=== PATIENT | female | born 1970 | race Caucasian/White ===

== ENCOUNTER 2017-09-06 19:41 | Emergency (ER) | payer OTHER ==
[2017-09-06] MEDS ORDERED: ASPIRIN 81 MG CHEW TAB PO ONE (19:43)
--- NOTE | 2017-09-06 19:43 | ED Physician Documentation ---
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 Pt had eaten a chicken dinner and was just sitting when pain occurred. Pt describes pain as 9/10 severity that radiated from her neck to her chest and L arm. No n/v, no diaphoresis, no sob. 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 She was seen in [facility]. Pt is a cigarette smoker, trying to quit, now smoking 5 cigarettes/day. 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 Pt presents with elevated ak=238/89. Pt takes no medications.) - ROS CONST: no problems EYES/ENT: none CVS/RESP: chest pain GI/: none MS/SKIN/LYMPH: none - PAST HX Past History: other (DVT, herpes zoster) Surgeries/Procedures: , cholecystectomy, hysterectomy, other ( appendectomy) Allergies/Adverse Reactions: Allergies Allergy/AdvReac Type Severity Reaction Status Date / Time latex Allergy Severe Blister Verified 09/06/17 20:32 cephalexin monohydrate Allergy Unknown Verified 09/06/17 20:32 [From Keflex] Penicillins Allergy Unknown Verified 09/06/17 20:32 STERIODS Allergy Unknown Uncoded 09/06/17 20:32 Home Medications: Ambulatory Orders Medication Instructions Recorded NK [NK] 09/06/17 - SOCIAL HX Smoking History: cigarettes - FAMILY HX Family History: No - REVIEWED ASSESSMENTS Nursing Assessment Reviewed: Yes Vitals Reviewed: Yes Progress - Progress Progress: Nitro 0.4 mg SL BP 199/89 --> 149/79 SBP --> 173/82 one inch nitro paste BP 155/83 pain 9-->5 Zofran 4 mg IV Morphine [address] chest: Pulmonary vascular congestion and mild pulmonary edema. Insufficient contrast enhancement of the pulmonary arteries for evaluation of pulmonary emboli. Transfer to [facility]. Dr. Jean. - EKG/XRAY/CT EKG: NSR (HR=83; normal axis; RBBB) XRAY: chest (No focal consolidation or pleural effusion.) General Adult Physical Exam - PHYSICAL EXAM GENERAL APPEARANCE: moderate distress EENT: pharynx normal NECK: normal inspection, supple RESPIRATORY: no resp distress, chest non-tender, breath sounds normal CVS: reg rate & rhythm, heart sounds normal ABDOMEN: soft, no organomegaly, normal bowel sounds BACK: normal inspection, no CVA tenderness SKIN: warm/dry, normal color EXTREMITIES: non-tender, normal range of motion, no evidence of injury NEURO: oriented X3, motor nml, sensation nml Discharge Clincal Impression: Chest pain, elevated D-dimer Referrals: Primary Doctor,No [Primary Care Provider] - Condition: Stable Disposition: XFER SHT-TRM HOSP Decision to Admit: NO Decision Time: 22:54
[2017-09-06] MEDS ORDERED: METOPROLOL TARTRATE 5 MG/5 ML VIAL IVP ONE (19:48)
[2017-09-06] MEDS ORDERED: NITROGLYCERIN 0.4 MG TAB.SUBL SL ONE (19:49)
[2017-09-06] MEDS ORDERED: NITROGLYCERIN 2% 1GM OINT PACKET...G. TD ONE (20:09)
[2017-09-06 20:19] LABS: BASOPHILS % 0.8 (0.0-1.5); EOSINOPHILS % 3.4 % (0.0-6.8); MEAN CORPUSCULAR HEMOGLOBIN 30.9 pg (28.0-34.0); MEAN CORPUSCULAR VOLUME 92.1 fl (80.0-100.0); MONOCYTES % 5.9 % (0.0-11.0); NEUTROPHILS # 4.3 # k/uL (1.4-7.7)
[2017-09-06 20:40] LABS: eGFR (African) > 60; eGFR (Non-African) > 60
--- NOTE | 2017-09-06 22:30 | Diagnostic Imaging Report ---
NINO PHAM [facility] [address] [facility] [address] [address] Report Submission Date: Sep 06, 2017 8:39:11 PM CDT Patient Study Name: JAD ALMANZA Date: Sep 06, 2017 8:23:43 PM CDT Modality Type: DX Gender: F Description: CHEST : 68 Institution: [facility] Physician: NINO PHAM Single frontal view of the chest History: Chest pain No comparison studies Cardiac size is upper limits of normal Monitoring leads are present over the chest No focal consolidation, pleural effusion or pneumothorax. No acute osseous pathology. Impression: No focal consolidation or pleural effusion. Electronically signed on Sep 06, 2017 8:39:11 PM CDT by: Lana RAMOS
[2017-09-06] MEDS ORDERED: ONDANSETRON HCL/PF 4 MG/ 2ML VIAL IVP ONE (22:48)
[2017-09-06] MEDS ORDERED: MORPHINE SULFATE 2 MG/ML PREFILLED SYR IVP ONE (22:49)
[2017-09-06 23:06] VITALS: BP 168/84
[2017-09-07 07:02] LABS: APPEARANCE,URINE CLEAR (CLEAR); COLOR,URINE AMBER (YELLOW)
[2017-09-07 07:03] LABS: OCCULT BLOOD,URINE TR (NEGATIVE); UROBILINOGEN URINE 0.2 Eu (0.2-1.0)
--- NOTE | 2017-09-07 10:29 | Diagnostic Imaging Report ---
[facility] [address] [facility].[address] [address] Report Submission Date: Sep 06, 2017 10:29:14 PM CDT Patient Study Name: JAD ALMANZA Date: Sep 06, 2017 9:41:41 PM CDT Modality Type: CT\SR Gender: F Description: CT PE CHEST : 68 Institution: [facility] Physician: NINO PHAM CT chest with contrast Date of study: September 06, 2017. CLINICAL HISTORY: CHEST PAIN; ELEVATED DDIMER; HX OF PE (Hx) / ITS.REASON chest pain; elevated D-dimer; hx DVT; PE PROTOCAL TECHNIQUE: 2.5 mm contiguous axial images of the chest with contrast. Sagittal and coronal reconstructions. FINDINGS: The left atrium is dilated and there is mild to moderate pulmonary vascular congestion. Hazy lung parenchymal opacity is consistent with mild pulmonary edema. There is no evidence of pulmonary infiltrate, pleural effusion or pneumothorax. There is limited contrast enhancement the pulmonary arteries and therefore limited evaluation for pulmonary emboli. The aorta and pulmonary arteries are normal in caliber. The mediastinal contents are within normal limits. The visualized portions of the liver, pancreas and spleen are normal in appearance. Surgical clips are present consistent with prior cholecystectomy. IMPRESSION: Pulmonary vascular congestion and mild pulmonary edema. Insufficient contrast enhancement of the pulmonary arteries for evaluation of pulmonary emboli. Electronically signed on Sep 06, 2017 10:29:14 PM CDT by: Derrek RAMOS
--- NOTE | 2017-09-07 15:20 | Diagnostic Imaging Report ---
NINO PHAM [facility] [address] [facility].[address] [address] Report Submission Date: Sep 06, 2017 10:29:14 PM CDT Patient Study Name: JAD ALMANZA Date: Sep 06, 2017 9:41:41 PM CDT Modality Type: CT\SR Gender: F Description: CT PE CHEST : 68 Institution: [facility] Physician: NINO PHAM CT chest with contrast Date of study: September 06, 2017. CLINICAL HISTORY: CHEST PAIN; ELEVATED DDIMER; HX OF PE (Hx) / ITS.REASON chest pain; elevated D-dimer; hx DVT; PE PROTOCAL TECHNIQUE: 2.5 mm contiguous axial images of the chest with contrast. Sagittal and coronal reconstructions. FINDINGS: The left atrium is dilated and there is mild to moderate pulmonary vascular congestion. Hazy lung parenchymal opacity is consistent with mild pulmonary edema. There is no evidence of pulmonary infiltrate, pleural effusion or pneumothorax. There is limited contrast enhancement the pulmonary arteries and therefore limited evaluation for pulmonary emboli. The aorta and pulmonary arteries are normal in caliber. The mediastinal contents are within normal limits. The visualized portions of the liver, pancreas and spleen are normal in appearance. Surgical clips are present consistent with prior cholecystectomy. IMPRESSION: Pulmonary vascular congestion and mild pulmonary edema. Insufficient contrast enhancement of the pulmonary arteries for evaluation of pulmonary emboli. Electronically signed on Sep 06, 2017 10:29:14 PM CDT by: Derrek RAMOS
== END 2017-09-06 23:15 | disposition short-term general hospital (02) ==
LOC: ED 19:41
DX: R07.9 Chest pain, unspecified (principal); F17.210 Nicotine dependence, cigarettes, uncomplicated; R79.1 Abnormal coagulation profile; Z86.718 Personal history of other venous thrombosis and embolism
CPT/HCPCS: 71045; 71275; 80053; 81002; 82550; 82553; 83880; 84484; 85025; 85379; 85610; 85730; 93005; J2270; J2405; 96374; 96375; 99284; Q9967; S1016

== ENCOUNTER 2017-09-14 13:24 | Outpatient (CLI) | payer OTHER | END 2017-09-14 13:25 | LOC: LAB 13:24 | PROVIDERS: ATTEND Internal Medicine Clinical Cardiac Electrophysiology | DX: Z79.01 Long term (current) use of anticoagulants (principal); D68.9 Coagulation defect, unspecified | CPT/HCPCS: 36415; 85610 ==

== ENCOUNTER 2017-09-17 09:54 | Outpatient (CLI) | payer OTHER | END 2017-09-17 09:55 | LOC: LAB 09:54 | PROVIDERS: ATTEND Internal Medicine Clinical Cardiac Electrophysiology | DX: Z79.01 Long term (current) use of anticoagulants (principal) | CPT/HCPCS: 36415; 85610 ==

== ENCOUNTER 2017-09-21 14:25 | Outpatient (CLI) | payer OTHER | END 2017-09-21 14:26 | LOC: LAB 14:25 | PROVIDERS: ATTEND Internal Medicine Clinical Cardiac Electrophysiology | DX: Z79.01 Long term (current) use of anticoagulants (principal); D68.9 Coagulation defect, unspecified | CPT/HCPCS: 36415; 85610 ==

== ENCOUNTER 2017-09-28 15:24 | Outpatient (CLI) | payer OTHER | END 2017-09-28 15:25 | LOC: LAB 15:24 | PROVIDERS: ATTEND Internal Medicine Clinical Cardiac Electrophysiology | DX: Z79.899 Other long term (current) drug therapy (principal); D68.9 Coagulation defect, unspecified | CPT/HCPCS: 36415; 85610 ==

== ENCOUNTER 2017-10-07 15:00 | Outpatient (CLI) | payer OTHER | END 2017-10-07 15:03 | LOC: LAB 15:00 | PROVIDERS: ATTEND Internal Medicine Clinical Cardiac Electrophysiology | DX: Z79.899 Other long term (current) drug therapy (principal); D68.9 Coagulation defect, unspecified | CPT/HCPCS: 36415; 85610 ==

== ENCOUNTER 2017-10-14 11:41 | Outpatient (CLI) | payer OTHER | END 2017-10-14 13:20 | LOC: LAB 11:41 | PROVIDERS: ATTEND Internal Medicine Clinical Cardiac Electrophysiology | DX: Z79.01 Long term (current) use of anticoagulants (principal); D68.9 Coagulation defect, unspecified | CPT/HCPCS: 36415; 85610 ==

== ENCOUNTER 2017-10-21 13:02 | Outpatient (CLI) | payer OTHER | END 2017-10-21 13:05 | LOC: LAB 13:02 | PROVIDERS: ATTEND Internal Medicine Clinical Cardiac Electrophysiology | DX: Z79.01 Long term (current) use of anticoagulants (principal); D68.9 Coagulation defect, unspecified | CPT/HCPCS: 36415; 85610 ==

== ENCOUNTER 2017-10-26 12:59 | Outpatient (CLI) | payer OTHER | END 2017-10-26 13:00 | LOC: LAB 12:59 | PROVIDERS: ATTEND Internal Medicine Clinical Cardiac Electrophysiology | DX: Z79.01 Long term (current) use of anticoagulants (principal); D68.9 Coagulation defect, unspecified | CPT/HCPCS: 36415; 85610 ==

== ENCOUNTER 2017-11-20 09:47 | Outpatient (CLI) | payer OTHER | END 2017-11-20 09:50 | LOC: LAB 09:47 | PROVIDERS: ATTEND Internal Medicine Clinical Cardiac Electrophysiology | DX: D68.9 Coagulation defect, unspecified (principal); Z79.01 Long term (current) use of anticoagulants | CPT/HCPCS: 36415; 85610 ==

== ENCOUNTER 2017-12-10 10:38 | Outpatient (CLI) | payer OTHER | END 2017-12-10 14:09 | LOC: LAB 10:38 | PROVIDERS: ATTEND Internal Medicine Clinical Cardiac Electrophysiology | DX: Z79.01 Long term (current) use of anticoagulants (principal); D68.9 Coagulation defect, unspecified | CPT/HCPCS: 36415; 85610 ==

== ENCOUNTER 2017-12-17 10:23 | Outpatient (CLI) | payer OTHER | END 2017-12-17 10:24 | LOC: LAB 10:23 | PROVIDERS: ATTEND Internal Medicine Clinical Cardiac Electrophysiology | DX: Z79.01 Long term (current) use of anticoagulants (principal); D68.9 Coagulation defect, unspecified | CPT/HCPCS: 36415; 85610 ==

== ENCOUNTER 2017-12-28 15:30 | Outpatient (CLI) | payer OTHER | END 2017-12-28 15:32 | LOC: LAB 15:30 | PROVIDERS: ATTEND Internal Medicine Clinical Cardiac Electrophysiology | DX: Z79.01 Long term (current) use of anticoagulants (principal); D68.9 Coagulation defect, unspecified | CPT/HCPCS: 36415; 85610 ==

== ENCOUNTER 2018-01-11 10:05 | Outpatient (CLI) | payer OTHER | END 2018-01-11 10:06 | LOC: LAB 10:05 | PROVIDERS: ATTEND Internal Medicine Clinical Cardiac Electrophysiology | DX: Z79.01 Long term (current) use of anticoagulants (principal); D68.9 Coagulation defect, unspecified | CPT/HCPCS: 36415; 85610 ==

== ENCOUNTER 2018-01-22 10:34 | Outpatient (CLI) | payer OTHER | END 2018-01-22 10:40 | LOC: LAB 10:34 | PROVIDERS: ATTEND Internal Medicine Clinical Cardiac Electrophysiology | DX: Z79.01 Long term (current) use of anticoagulants (principal); D68.9 Coagulation defect, unspecified | CPT/HCPCS: 36415; 85610 ==

== ENCOUNTER 2018-03-01 10:40 | Outpatient (CLI) | payer OTHER | END 2018-03-01 10:42 | LOC: LAB 10:40 | PROVIDERS: ATTEND Internal Medicine Clinical Cardiac Electrophysiology | DX: Z79.01 Long term (current) use of anticoagulants (principal); D68.9 Coagulation defect, unspecified | CPT/HCPCS: 36415; 85610 ==

== ENCOUNTER 2018-03-15 16:17 | Outpatient (CLI) | payer OTHER | END 2018-03-15 16:22 | disposition home or self-care (01) | LOC: LAB 16:17 | PROVIDERS: ATTEND Internal Medicine Clinical Cardiac Electrophysiology | DX: Z79.01 Long term (current) use of anticoagulants (principal); D68.9 Coagulation defect, unspecified | CPT/HCPCS: 36415; 85610 ==

== ENCOUNTER 2018-03-25 14:38 | Outpatient (CLI) | payer OTHER | END 2018-03-25 14:40 | LOC: LAB 14:38 | PROVIDERS: ATTEND Internal Medicine Clinical Cardiac Electrophysiology | DX: Z79.01 Long term (current) use of anticoagulants (principal); D68.9 Coagulation defect, unspecified | CPT/HCPCS: 36415; 85610 ==

== ENCOUNTER 2018-04-21 13:47 | Outpatient (CLI) | payer OTHER | END 2018-04-21 13:50 | LOC: LAB 13:47 | PROVIDERS: ATTEND Internal Medicine Clinical Cardiac Electrophysiology | DX: Z79.01 Long term (current) use of anticoagulants (principal) | CPT/HCPCS: 36415; 85610 ==

== ENCOUNTER 2018-05-06 16:05 | Outpatient (CLI) | payer OTHER | END 2018-05-06 16:10 | LOC: LAB 16:05 | PROVIDERS: ATTEND Internal Medicine Clinical Cardiac Electrophysiology | DX: Z79.01 Long term (current) use of anticoagulants (principal); Z51.81 Encounter for therapeutic drug level monitoring | CPT/HCPCS: 36415; 85610 ==

== ENCOUNTER 2018-05-21 11:42 | Outpatient (CLI) | payer OTHER | END 2018-05-21 11:50 | LOC: LAB 11:42 | PROVIDERS: ATTEND Internal Medicine Clinical Cardiac Electrophysiology | DX: Z79.01 Long term (current) use of anticoagulants (principal) | CPT/HCPCS: 36415; 85610 ==

== ENCOUNTER 2018-06-23 10:10 | Outpatient (CLI) | payer OTHER | END 2018-06-23 10:20 | LOC: LAB 10:10 | PROVIDERS: ATTEND Internal Medicine Clinical Cardiac Electrophysiology | DX: Z79.01 Long term (current) use of anticoagulants (principal); D68.9 Coagulation defect, unspecified | CPT/HCPCS: 36415; 85610 ==

== ENCOUNTER 2018-07-15 08:56 | Outpatient (CLI) | payer OTHER | END 2018-07-15 08:58 | LOC: LAB 08:56 | PROVIDERS: ATTEND Internal Medicine Clinical Cardiac Electrophysiology | DX: D68.9 Coagulation defect, unspecified (principal); Z79.01 Long term (current) use of anticoagulants | CPT/HCPCS: 36415; 85610 ==

== ENCOUNTER 2018-08-05 14:54 | Outpatient (CLI) | payer OTHER | END 2018-08-05 14:56 | LOC: LAB 14:54 | PROVIDERS: ATTEND Internal Medicine Clinical Cardiac Electrophysiology | DX: D68.9 Coagulation defect, unspecified (principal); Z79.01 Long term (current) use of anticoagulants | CPT/HCPCS: 36415; 85610 ==

== ENCOUNTER 2018-08-19 14:30 | Outpatient (CLI) | payer OTHER | END 2018-08-19 14:32 | LOC: LAB 14:30 | PROVIDERS: ATTEND Internal Medicine Clinical Cardiac Electrophysiology | DX: D68.9 Coagulation defect, unspecified (principal); Z79.01 Long term (current) use of anticoagulants | CPT/HCPCS: 36415; 85610 ==